=== PATIENT | female | born 1955 | race Caucasian/White ===

== ENCOUNTER → 2016-06-26 | Outpatient (CLI) | payer OTHER ==
[~2016-06-26] MED LIST: ASPI-611 PO; BISO10TA PO; CHOL200026 PO; CYCL-375 PO; LEVO112T7 PO; ONDA4TAB10 SL; PANT20TA PO
--- NOTE | 2016-06-26 11:58 | DI ---
Indication: ITS.REASON: M79.671 PAIN IN RT FOOT PROCEDURE: MRI FOOT RIGHT W/O CONTRAST: Encounter: Initial Comparison: Right foot radiographs dated May 01, 2016 Technique: Multiplanar multisequence MR imaging of the right foot was performed without contrast. Findings: There is bony irregularity in the second through fifth metatarsal bases with focal low T1 signal intensity in the middle cuneiform bone and second metatarsal base. There is bowing deformity of the fifth metatarsal shaft. The flexor and extensor tendons of the foot appear intact. The Lisfranc ligament appears thickened but grossly intact. There is edema within the navicular bone and medial cuneiform as well. Large osteophyte formation seen in the midfoot. No discrete acute fracture line identified. No fluid collection seen. Plantar fascia appears normal in thickness. Impression: Bony disorganization of the mid foot which could be due to old trauma or a neuropathic foot. There is more focal edema in the medial cuneiform bone and navicular which could be due to superimposed bone contusion or merely represent degenerative edema. .
== END ==
LOC: IMA 09:35
PROVIDERS: ATTEND Family Medicine Sports Medicine
DX: R60.0 Localized edema (principal); R93.7 Abnormal findings on diagnostic imaging of other parts of musculoskeletal system; M79.671 Pain in right foot

== ENCOUNTER 2017-06-27 09:47 | Inpatient (IN) ==
[2017-06-27] MEDS ORDERED: SALINE FLUSH 10ml SYRINGE IVF PRN (10:05)
[2017-06-27] MEDS: NS 1,000 ML IV SCH ×2 (10:33→14:44)
--- NOTE | 2017-06-27 11:42 | Emergency Department Report ---
Neuro HPI - General Chief Complaint: Neuro Symptoms/Deficit Stated Complaint: numbness R side Face, arm, diff swallowing Time Seen by Provider: 06/27/17 10:05 - History of Present Illness HPI Narrative: 62-year-old female presents with right-sided facial weakness which onset at 08 30 this morning. No trauma, no prodromal event. She was sitting and suddenly noticed right sided numbness on her face arm and leg. She's had no previous embolic event. She had no syncope. No headache or vision changes either. No event like this is her happened to her previously. She felt uncomfortable up with her that she came to emergency department. - Related Data Home Medications: Home Medications Medication Instructions Recorded Confirmed Bisoprolol Fumarate 10 mg PO DAILY #0 11/23/15 06/27/17 Aspirin [Aspirin EC] 162 mg PO DAILY 06/27/17 06/27/17 Atorvastatin [Lipitor] 10 mg PO HS 06/27/17 06/27/17 Cholecalciferol (Vitamin D3) 2,000 unit PO DAILY 06/27/17 06/27/17 [Vitamin D3] Coenzyme Q-10 [Co Q-10] 200 mg PO HS 06/27/17 06/27/17 Cyclobenzaprine [Flexeril] 10 mg PO TID PRN 06/27/17 06/27/17 Levothyroxine Tab [Synthroid] 100 mcg PO ACB 06/27/17 06/27/17 Liothyronine Sodium 7.5 mg PO DAILY 06/27/17 06/27/17 Metformin HCl [Metformin HCl ER] 1,000 mg PO QAM 06/27/17 06/27/17 Metformin HCl [Metformin HCl ER] 500 mg PO WS 06/27/17 06/27/17 Nitroglycerin [Nitrostat] 0.4 mg SL Q5MIN3 PRN 06/27/17 06/27/17 Pantoprazole Sodium [Protonix] 20 mg PO HS 06/27/17 06/27/17 Zolpidem [Ambien] 10 mg PO HS PRN 06/27/17 06/27/17 Allergies/Adverse Reactions: Allergies Allergy/AdvReac Type Severity Reaction Status Date / Time butorphanol Allergy Severe BREATHING Verified 06/27/17 10:13 amoxicillin Allergy Mild STOMACH Verified 06/27/17 10:13 cephalexin Allergy Mild HEADACHE Verified 06/27/17 10:13 erythromycin base Allergy Mild Verified 06/27/17 10:13 meperidine Allergy Mild VOMIT Verified 06/27/17 10:13 phenazopyridine Allergy Mild RASH Verified 06/27/17 10:13 Sulfa (Sulfonamide Allergy Mild RASH Verified 06/27/17 10:13 Antibiotics) Review of Systems All systems: reviewed and negative except as stated PFSH Patient Stated Medical History Cardiac Arrhythmia Yes Hypertension Yes Diabetes Mellitus Type 2 Yes - Social History Smoking status: Never smoker Physical Exam - Limitations Limitations: no limitations - General General appearance: alert, in no apparent distress - Normal Exams: Head:: Normocephalic without trauma Chest/Respirations:: Clear all kang, with good airflow, and symmetry bilaterally Cardiovascular:: Regular rate and rhythm, without murmur or gallop, Pulses 2+ all extremities, capillary refill, <2 seconds all extremities Abdomen:: Bowel sounds positive, soft, non-tender, non-distended, no hepatosplenomegaly, masses or bruits noted Neurological:: Patient is alert, and oriented, cranial nerves, motor/sensory/ cerebellar, exams w/o gross deficits, to observation Psychiatric:: Patient exhibits, appropriate attention, emotion and affect - Neurological Exam Neurological exam: Present: motor sensory deficit (no motor sensory deficit is noted. Strength 5 out of 5 in all 4 extremities.History through 12 grossly intact.), other (patient reports an odd SENSATION TO HER FACE ON LIGHT TOUCH, HOWEVER PATIENT DOES HAVE SENSATION.) Course Vital Signs Temperature 98.3 F 06/27/17 09:50 Pulse Rate 73 06/27/17 09:50 Respiratory Rate 19 06/27/17 09:50 Blood Pressure 176/85 H 06/27/17 09:50 Pulse Oximetry 100 06/27/17 09:50 Temperature 98.3 F 06/27/17 09:50 Pulse Rate 75 06/27/17 12:30 Respiratory Rate 20 06/27/17 12:30 Blood Pressure 164/70 H 06/27/17 12:30 Pulse Oximetry 97 06/27/17 12:30 Neuro Symptoms/Deficit - MDM Narrative Medical decision making narrative: NIH stroke scale was 1. Teleneurology was consulted and responded. The neurologist did speak to the patient, but do not have access to radiology. Apparently they do not subscribe to the service that allows them to review our CT scans or the radiologist's read. Therefore they're making the decision without seeing the CT scan. Teleneurology recommended giving the alteplase at 4 hours post event with the NIH scale of 1. This is discussed with the patient at length, reviewing the best that I could find on risk and benefit. Neurology called back and explained that based on her sedan score her risk decreased from 6.7% to approximately 2% risk of significant bleed. I also discussed this with the patient. The patient, her sister, her and her son while present in the room. They discussed between themselves and ultimately decided she could stand to live with the symptoms of tightness in her face and on her arms and legs and that they preferred that to even a small risk of bleed. At this point we will hold off on alteplase. Patient will be admitted to hospitalist service. I discussed this with Dr. Tarango. - Differential Diagnosis Likely: subarachnoid hemorrhage, peripheral neuropathy, cerebrovascular accident , multiple sclerosis, transient cerebral ischemia - Lab Data Result diagrams: 06/27/17 10:28 06/27/17 10:28 Lab Results 06/27/17 06/27/17 06/27/17 Range/Units 10:00 10:28 10:28 WBC 10.1 (4.5-11.0) T/MM3 RBC 5.04 (4.00-5.20) M/MM3 Hgb 13.7 (12-16) GM/DL Hct 42.2 (36-46) % MCV 83.7 (80-100) UM3 MCH 27.2 (26-34) UUG MCHC 32.5 (31-37) GM/DL RDW Std Deviation 48.2 (36.9-50.2) FL Plt Count 278 (130-400) T/MM3 MPV 9.8 (9.4-12.4) UM3 Immature Gran % (Auto) 0.9 H (0.0-0.5) % Neut % (Auto) 67.9 H (33-66) % Lymph % (Auto) 21.9 L (23-45) % [place] % (Auto) 6.2 (0-9.0) % Eos % (Auto) 2.8 (0-4) % Baso % (Auto) 0.3 (0-2) % Neut # (Auto) 6.8 (1.8-7.7) T/MM3 Lymph # (Auto) 2.2 (1-4.8) T/MM3 [place] # (Auto) 0.6 (0-0.8) T/MM3 Eos # (Auto) 0.3 (0-0.5) T/MM3 Baso # (Auto) 0.0 (0-0.2) T/MM3 Abs Immat Gran (auto) 0.09 H (0.00-0.03) T/MM3 Turbidity < 20 (0-20) Sodium 145 H (134-144) MEQ/L Potassium 4.2 (3.6-5) MEQ/L Chloride 105 (98-107) MEQ/L Carbon Dioxide 27 (22-30) MEQ/L Anion Gap 13 (5-15) meq/L BUN 19.0 H (7-17) MG/DL Creatinine 0.7 (0.7-1.2) mg/dL GFR Calculation 85 BUN/Creatinine Ratio 27 H (6-26) RATIO Glucose 101 (65-110) MG/DL Glucometer 91 (65-110) mg/dL Calculated Osmolality 281 H (261-280) MOSM/KG Calcium 9.6 (8.4-10.2) MG/DL Total Bilirubin 0.50 (0.20-1.30) MG/DL Icterus Index < 2 (0-7) AST 22 (14-36) U/L ALT 20 (1-35) U/L Alkaline Phosphatase 111 (38-126) U/L Total Protein 7.5 (6.3-8.2) g/dL Albumin 4.3 (3.5-5.0) g/dL Globulin 3.2 (2.4-3.6) G/DL Albumin/Globulin Ratio 1.3 (1.1-2.2) RATIO Specimen Hemolysis < 15 (0-25) Ur Collection Type Urine Color (YELLOW) Urine Clarity Urine pH (5.0-8.0) Ur Specific [place] (1.015-1.025) Urine Protein (NEGATIVE) Urine Glucose (UA) (NEGATIVE) Urine Ketones (NEGATIVE) Urine Occult Blood (NEGATIVE) Urine Nitrate (NEGATIVE) Urine Bilirubin (NEGATIVE) Urine Urobilinogen (NORMAL) EU/DL Ur Leukocyte Esterase (NEGATIVE) Urinalysis Comment 04/28/18 Range/Units 10:42 WBC (4.5-11.0) T/MM3 RBC (4.00-5.20) M/MM3 Hgb (12-16) GM/DL Hct (36-46) % MCV (80-100) UM3 MCH (26-34) UUG MCHC (31-37) GM/DL RDW Std Deviation (36.9-50.2) FL Plt Count (130-400) T/MM3 MPV (9.4-12.4) UM3 Immature Gran % (Auto) (0.0-0.5) % Neut % (Auto) (33-66) % Lymph % (Auto) (23-45) % [place] % (Auto) (0-9.0) % Eos % (Auto) (0-4) % Baso % (Auto) (0-2) % Neut # (Auto) (1.8-7.7) T/MM3 Lymph # (Auto) (1-4.8) T/MM3 [place] # (Auto) (0-0.8) T/MM3 Eos # (Auto) (0-0.5) T/MM3 Baso # (Auto) (0-0.2) T/MM3 Abs Immat Gran (auto) (0.00-0.03) T/MM3 Turbidity (0-20) Sodium (134-144) MEQ/L Potassium (3.6-5) MEQ/L Chloride (98-107) MEQ/L Carbon Dioxide (22-30) MEQ/L Anion Gap (5-15) meq/L BUN (7-17) MG/DL Creatinine (0.7-1.2) mg/dL GFR Calculation BUN/Creatinine Ratio (6-26) RATIO Glucose (65-110) MG/DL Glucometer (65-110) mg/dL Calculated Osmolality (261-280) MOSM/KG Calcium (8.4-10.2) MG/DL Total Bilirubin (0.20-1.30) MG/DL Icterus Index (0-7) AST (14-36) U/L ALT (1-35) U/L Alkaline Phosphatase (38-126) U/L Total Protein (6.3-8.2) g/dL Albumin (3.5-5.0) g/dL Globulin (2.4-3.6) G/DL Albumin/Globulin Ratio (1.1-2.2) RATIO Specimen Hemolysis (0-25) Ur Collection Type Urine, void-cc/notcc Urine Color Yellow (YELLOW) Urine Clarity Clear Urine pH 5.5 (5.0-8.0) Ur Specific [place] <=1.005 L (1.015-1.025) Urine Protein Negative (NEGATIVE) Urine Glucose (UA) Negative (NEGATIVE) Urine Ketones Negative (NEGATIVE) Urine Occult Blood Negative (NEGATIVE) Urine Nitrate Negative (NEGATIVE) Urine Bilirubin Negative (NEGATIVE) Urine Urobilinogen 0.2 (NORMAL) EU/DL Ur Leukocyte Esterase Negative (NEGATIVE) Urinalysis Comment Microscopic not ind. Disposition Clinical Impression: Cerebrovascular accident Disposition: 02 To [facility] [place] Acute Care Condition: Stable Prescriptions: No Action Bisoprolol Fumarate 10 mg PO DAILY #0 Coenzyme Q-10 [Co Q-10] 200 mg PO HS Zolpidem [Ambien] 10 mg PO HS PRN PRN Reason: Insomnia Metformin HCl [Metformin HCl ER] 500 mg PO WS Atorvastatin [Lipitor] 10 mg PO HS Aspirin [Aspirin EC] 162 mg PO DAILY Cholecalciferol (Vitamin D3) [Vitamin D3] 2,000 unit PO DAILY Cyclobenzaprine [Flexeril] 10 mg PO TID PRN PRN Reason: Muscle Spasm Pantoprazole Sodium [Protonix] 20 mg PO HS Levothyroxine Tab [Synthroid] 100 mcg PO ACB Liothyronine Sodium 7.5 mg PO DAILY Metformin HCl [Metformin HCl ER] 1,000 mg PO QAM Nitroglycerin [Nitrostat] 0.4 mg SL Q5MIN3 PRN PRN Reason: Chest Pain Referrals: Rick Enriquez MD [Primary Care Provider] - Time of Disposition: 12:49 - Seen By: physician
[2017-06-27] MEDS ORDERED: MORPHINE SULFATE 4mg INJECTION IVP ONE (12:03)
--- NOTE | 2017-06-27 13:19 | History & Physical Report ---
History of Present Illness Date: 06/27/17 Chief complaint: abnormal sensation right side of face HPI: Melba Boyd is a 62 year old woman who presented [place] [facility] for further evaluation of stroke-like symptoms. She stated that at 0830 this morning, the right side of her face began to feel numb and it felt funny to swallow (but denies choking). She also noticed some right arm weakness. Her fine motor coordination was unaffected. She went to the mirror to look at her face and noticed that her smile was a little off on the right. She also developed a mild right-sided headache. She reports some dizziness but no syncope. Melba tripped over a curb about 2 weeks ago and injured her right shoulder and back - she went to a chiropractor yesterday but with the persistent pain she is quite worried about a blood clot. Her risk factors include 2 recent plane trips over the last 6 years. She states that yesterday (06/26) she was slightly short of breath and wheezy. She reports mild chronic sinus drainage and a nonproductive cough which she attributes to allergies. She has frequent palpitations but denies chest pain. She denies leg swelling. No abdominal pain or n/v/d/c. She denies urinary issues. She denies any rashes or wounds but notes that her skin tears easily. When she arrived in the ED, teleneurology was consulted and recommended tPA. NIH score = 1. Following risks: benefits discussion with the ED physician, she declined tPA. She was moderately hypertensive in the ED and had one isolated reading of SBP [address] head was read as hypodensity to the left posterior inferior thalamus, possibly indicating stroke. Labs showed mild hypernatremia (145) but were otherwise unremarkable. She was given ASA 325 mg and 1L IVF. Dr. Tarango was contacted and given her stroke symptoms, she was admitted to inpatient status. Review of Systems All systems PM: 10-point ROS was reviewed, no additional remarkable complaints except - Constitutional Constitutional: Present: headache(s). Absent: chills, fever(s), weakness - EENMT Eyes: Present: requires corrective lenses. Absent: blurry vision, change in vision, diplopia Balance: Absent: falling to one side Nose: Present: allergies Mouth/Throat: Present: changes in swallowing. Absent: sore throat, painful swallowing - Cardiovascular Cardiovascular: Present: palpitations. Absent: chest pain, syncope, edema Vascular: Present: see HPI. Absent: unilateral swelling - Respiratory Respiratory: Present: cough, wheezing - Gastrointestinal Gastrointestinal: Absent: abdominal pain, constipation, diarrhea, nausea, vomiting - Genitourinary Genitourinary: Absent: dysuria, hematuria Menstruation: post hysterectomy - Musculoskeletal Musculoskeletal: Present: other (right shoulder pain) - Integumentary/Breasts Integumentary: Absent: rash, wounds - Neurological Neurological: Present: as per HPI, headache(s), numbness (chronic numbness to both legs), sensory deficit (right side of face). Absent: dizziness - Psychiatric Psychiatric: Absent: anxiety, depression - Endocrine Endocrine: Present: palpitations - Hematologic/Lymphatic Hematologic/Lymphatic: Absent: easy bleeding, easy bruising - Allergic/Immunologic Allergic/Immunologic: Present: seasonal rhinorrhea Past Medical History Medical History Updates: CAD. SVT. Vitamin D deficiency. 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 Dyslipidemia. HTN. Hypothyroidism. LYNN - has CPAP but doesn' t consistently use. Nephrolithiasis. OA. 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 Prediabetes (Hg A1c in last 6 months was 6.2%) Surgical History: ERCP. Cholecystectomy. Appendectomy. Cystoscopy. Lithotripsy. Heart cath in 2016 showing CAD not requiring stents. Cardiac ablation 2008 for SVT. Tonsillectomy age 8. Colonoscopy and EGD in 2012 and 2016. CAMILA/BSO 2010. Hemorrhoidal banding 2012. Left knee arthroscopy 2015 - Dr. Muniz Family History Updates: Mother at age 72 of a cerebral aneurysm. Also had CAD and OK and bladder cancer. All of her mother's siblings had CAD. Father at age 35 of heart attack or stroke. MGM - breast and throat cancer. MGF - Stroke. PGM - DM. PGF - CAD. 2 sisters - 1 of pancreatic cancer at age 71; she also had CAD. Other sister with CAD (she has 44 stents). Family History: As Above - Social History Smoking status: Former smoker (quit 1980) Packs per day: 1 Packs-years: 10 Substance use type: does not use Alcohol intake frequency: does not drink Household members: spouse, other (foster care) Current occupational status: retired Previous occupational history: manager web application at [employer] Medications Home Medications Medication Instructions Recorded Confirmed Type Bisoprolol Fumarate 10 mg PO DAILY #0 11/23/15 06/27/17 History Aspirin [Aspirin EC] 162 mg PO DAILY 06/27/17 06/27/17 History Atorvastatin [Lipitor] 10 mg PO HS 06/27/17 06/27/17 History Cholecalciferol (Vitamin D3) 2,000 unit PO DAILY 06/27/17 06/27/17 History [Vitamin D3] Coenzyme Q-10 [Co Q-10] 200 mg PO HS 06/27/17 06/27/17 History Cyclobenzaprine [Flexeril] 10 mg PO TID PRN 06/27/17 06/27/17 History Levothyroxine Tab [Synthroid] 100 mcg PO ACB 06/27/17 06/27/17 History Liothyronine Sodium 7.5 mg PO DAILY 06/27/17 06/27/17 History Metformin HCl [Metformin HCl ER] 1,000 mg PO QAM 06/27/17 06/27/17 History Metformin HCl [Metformin HCl ER] 500 mg PO WS 06/27/17 06/27/17 History Nitroglycerin [Nitrostat] 0.4 mg SL Q5MIN3 PRN 06/27/17 06/27/17 History Pantoprazole Sodium [Protonix] 20 mg PO HS 06/27/17 06/27/17 History Zolpidem [Ambien] 10 mg PO HS PRN 06/27/17 06/27/17 History Allergies Allergy/AdvReac Type Severity Reaction Status Date / Time butorphanol Allergy Severe BREATHING Verified 06/27/17 10:13 amoxicillin Allergy Mild STOMACH Verified 06/27/17 10:13 cephalexin Allergy Mild HEADACHE Verified 06/27/17 10:13 erythromycin base Allergy Mild Verified 06/27/17 10:13 meperidine Allergy Mild VOMIT Verified 06/27/17 10:13 phenazopyridine Allergy Mild RASH Verified 06/27/17 10:13 Sulfa (Sulfonamide Allergy Mild RASH Verified 06/27/17 10:13 Antibiotics) Exam Vital Signs: Temperature 98.3 F 06/27/17 09:50 Pulse Rate 75 06/27/17 12:30 Respiratory Rate 20 06/27/17 12:30 Blood Pressure 164/70 H 06/27/17 12:30 Pulse Oximetry 97 04/28/18 12:30 - Constitutional Present: no acute distress, well nourished, well developed - Routine HEENT Exam Head: Present: normocephalic Eye: Present: PERRL. Absent: conjunctival icterus, scleral injection ENT: Present: mucous membranes moist, oropharynx clear, dentition normal - Routine Neck Exam Present: supple. Absent: lymphadenopathy - Routine Respiratory Exam Present: CTA bilaterally - Routine Cardiovascular Exam Present: RRR, S1, S2 - Routine Abdominal Exam Present: soft, normoactive bowel sounds, non distended, non tender - Routine Extremities Exam Present: no edema, pulses intact, normal capillary refill. Absent: calf tenderness - Routine Back/Spine/Pelvis Exam Back/Spine: Present: full ROM - Routine Skin Exam Present: intact, dry, warm - Routine Neurological Exam Present: alert, oriented X3, moving all extremities, vision grossly intact, hearing grossly intact, normal speech. Absent: CN II-XII intact (subtle loss of right nasolabial fold), sensory deficit (previous numbness to right side of face has resolved), motor deficit, altered mental status, nystagmus - Routine Psychiatric Exam Present: normal affect, normal thought process, cooperative Results - Labs CBC & Chem 7: 06/27/17 10:28 06/27/17 10:28 Assessment and Plan (1) Cerebrovascular accident Current visit: Yes Status: Acute Assessment and Plan: Assessment Acute stroke Hypernatremia (POA) CAD SVT, history of ablation Dyslipidemia HTN Hypothyroidism Prediabetes (Hg A1c in last 6 months was 6.2%) LYNN - has CPAP but doesn't consistently use Vitamin D deficiency 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 PCP: Dr. Enriquez Stroke -symptoms improving -MR brain, carotid dopplers, echo, lipid panel -continue statin but consider changing d/t muscle cramps -continue ASA, start Plavix -PT/OT/ST consults -monitor tele and BP - not on any antiHTN Prediabetes -Carb consistent diet -monitor accuchecks -cont Metformin LYNN -encouraged her to use home CPAP while hospitalized Advanced directives: -DPOA updated today naming her spouse Basim as DPOA and her sister as her alternate -they will work on Living Will -Full code DVT Prophylaxis: SCD's, Lovenox GI Prophylaxis: Protonix Resuscitation Status: Full Code - Physician Narrative Physician: Jena Tarango MD Narrative: Date: 06/27/17 Time: 1740 I have independently evaluated and examined this patient. I reviewed the chart, the patient's history, and the GAMBLING CASHIER/PA's documented findings as above. We discussed and formulated the assessment and plan as above with additions as below: Mrs. Boyd had onset of right facial numbness, subtle facial asymmetry not perceived by her , and subtle right upper extremity weakness at 8:30 this morning. She had been up for a little over an hour prior to onset of symptoms. Mild residual facial numbness persists but other symptoms have resolved. Decreased sensation right V2, V3 distributions of the facial nerve, forehead spared. I did not appreciate significant facial asymmetry time of my exam. Remainder of cranial nerves unremarkable, tongue midline. Sensation symmetric in the upper and lower extremities accounting for known neuropathy involving the lower extremities. No drift to the upper extremities, proximal/distal power within normal limits 4 extremities. [id number] intact, rapid alternating finger movements intact; no tremor CT head reviewed by myself-proximal 1 cm lucency in the left posterior thalamus described of uncertain significance per radiology report Venous Doppler right upper extremity also reviewed by myself-no evidence of DVT. Laboratory data unremarkable. Subtle neurological symptoms consistent with ischemic event-possible ischemic stroke visualized on CT obtain 90 minutes after onset of symptoms, seems asked seemingly early to visualize small ischemic stroke. Proceed with MR imaging and additional standard studies as outlined above. May require CT angiogram for better definition of small vessels. Plavix initiated; will discuss need to continue aspirin with Dr. Sarmiento as patient has known CAD with 1 lesion of approximately 70% stenosis by heart catheter 2 years ago. Continue aspirin 81 mg daily at present. Consider conversion to Crestor for higher potency statin. Will discuss with patient/ after preliminary results are available. Discussed with Dr. Hernández. Hospital Course Summary Disclaimer: The visit summary below is not to be considered part of the above Progress Note. Hospital Course: 06/27/17 - Admit, inpatient status. PCP: Dr. Enriquez Stroke -symptoms improving -MR brain, carotid dopplers, echo, lipid panel -continue statin but consider changing d/t muscle cramps -continue ASA, start Plavix -PT/OT/ST consults -monitor tele and BP - not on any antiHTN Prediabetes -Carb consistent diet -monitor accuchecks -cont Metformin LYNN -encouraged her to use home CPAP while hospitalized Advanced directives: -DPOA updated today naming her spouse Basim as DPOA and her sister as her alternate -they will work on Living Will -Full code
[2017-06-27 13:47] VITALS: BMI 41.2
[2017-06-27] MEDS: ACETAMINOPHEN 325 MG TABLET PO PRN (14:34)
[2017-06-27] MEDS ORDERED: CYCLOBENZAPRINE 10 MG TABLET PO PRN (14:47)
[2017-06-27] MEDS ORDERED: NITROGLYCERIN 0.4 MG SUBLINGUAL TABLET SL PRN (14:47)
[2017-06-27] MEDS ORDERED: ZOLPIDEM 10 MG TABLET PO PRN (14:47)
[2017-06-27] MEDS: CLOPIDOGREL 75 MG TABLET PO SCH (15:11)
[2017-06-27] MEDS ORDERED: COENZYME Q-10 200mg TABLET PO SCH (21:00)
[2017-06-27] MEDS ORDERED: PANTOPRAZOLE 20 MG TABLET PO SCH (21:00)
[2017-06-27] MEDS ORDERED: ATORVASTATIN 10 MG TABLET PO SCH (21:00)
[2017-06-28] MEDS: ACETAMINOPHEN 325 MG TABLET PO PRN (00:43)
[2017-06-28] MEDS ORDERED: LEVOTHYROXINE 100 MCG TABLET PO SCH (06:30)
[2017-06-28 07:31] VITALS: RESP 16
[2017-06-28] MEDS ORDERED: ASPIRIN 325 MG TABLET PO SCH (09:00)
[2017-06-28] MEDS ORDERED: NON-FORMULARY MEDICATION 1 EACH EACH (Cholecalciferol (Vitamin D3) [Vitamin D3] 2,000 UNIT PO SCH (09:00)
[2017-06-28] MEDS ORDERED: BISOPROLOL FUMARATE 10 MG PO SCH (09:00)
[2017-06-28] MEDS ORDERED: ENOXAPARIN 40 MG/0.4 ML INJECTION SQ SCH (09:00)
[2017-06-28] MEDS ORDERED: LIOTHYRONINE 5 MCG TABLET PO SCH (09:00)
[2017-06-28] MEDS ORDERED: ASPIRIN *EC* 81 MG TABLET PO SCH ×2 (09:00)
[2017-06-28] MEDS: CLOPIDOGREL 75 MG TABLET PO SCH (09:22)
--- NOTE | 2017-06-28 09:50 | Ultrasound Report ---
Indication: arm pain r/o DVT PROCEDURE: US venous doppler UE RT: Encounter: Initial Comparison: None Technique: Color Doppler duplex and grayscale sonographic imaging of the right upper extremity was performed. FINDINGS: There is no evidence for acute deep venous thrombosis in the right arm. The right internal jugular, subclavian, axillary and paired brachial veins were evaluated; compression and augmentation were applied where possible. In addition, color and pulsed Doppler demonstrate appropriate spontaneous flow, cardiac pulsatility and variation with respiration. IMPRESSION: No evidence of acute DVT in the right upper extremity. There is a preliminary report by [facility]. .
--- NOTE | 2017-06-28 09:50 | CT Scan Report ---
Indication: numbness face PROCEDURE: CT head/brain wo con: Encounter: Initial Comparison: Brain MRI dated June 28, 2017 Technique: Axial CT images through the head were performed without contrast. Iterative Reconstruction dose reducing technique was utilized. FINDINGS: The ventricles are of normal size, shape, and contour for the patient's age. There are scattered areas of low attenuation in the white matter which most likely represent changes from chronic microvascular ischemia. The preliminary report mentions a region of low attenuation in the left thalamus which is probably due to beam hardening artifact and is not confirmed on the subsequent brain MRI. The brainstem, cerebellum, and cerebral hemispheres otherwise have a normal morphology and CT attenuation. There is no evidence of midline displacement. No hemorrhage, signs of acute territorial stroke, mass effect, mass lesions, or edema is evident. The visualized portions of the skull base, midface, and calvarium demonstrate no abnormality. The paranasal sinuses are well aerated and free of significant disease. The tympanic and mastoid cavities appear normal. IMPRESSION: No acute intracranial abnormality or hemorrhage. If there is continued, concern for acute ischemia, brain MRI may be helpful. There is a preliminary report by [employer]. .
--- NOTE | 2017-06-28 09:52 | Magnetic Resonance Report ---
Indication: stroke, right facial abnormal sensation PROCEDURE: MR head/brain wo con: Encounter: Initial Comparisons: None. Technique: Multiplanar, multisequence, MR imaging of the head without contrast was acquired. FINDINGS: The ventricles are of normal size, shape, and contour for the patient's age. There are small nonspecific punctate areas of T2-weighted and T2 FLAIR weighted signal abnormality in the deep frontoparietal white matter that most likely represent small vessel ischemic disease. This is advanced for the patient's age. The brain stem, cerebellum, and cerebral hemispheres otherwise have a normal morphologic appearance as well as MR signal intensity on all pulse sequences. There are no areas of restricted diffusion on diffusion weighted imaging to suggest an acute infarct. There is no evidence of an intracranial mass lesion, intracranial hemorrhage, or hydrocephalus. The visualized portions of the orbits, calvarium, paranasal sinuses, and skull base demonstrate no significant abnormality. IMPRESSION: No acute intracranial hemorrhage or infarct. Increased number of nonspecific white matter lesions could represent chronic microvascular ischemia although other etiologies such as demyelinating disease and postinfectious/postinflammatory causes are also within the differential. .
--- NOTE | 2017-06-28 09:54 | Ultrasound Report ---
Indication: stroke PROCEDURE: US carotid doppler BI: TECHNIQUE: Grayscale, color and duplex Doppler imaging was performed of the carotid systems bilaterally. Velocities in cm/sec - validated velocity measurements with angiographic measurements, velocity criteria are extrapolated from diameter data as defined by the Society of Radiologists in Ultrasound Consensus Conference Radiology 2003; 229;340-346. RIGHT: PSV ICA 70.5 EDV ICA 22.8 PSV CCA 79.5 EDV CCA 14.2 PSV ECA 111 ICA Diameter reduction <20% (0.8-1.0)% LEFT: PSV ICA 82.5 EDV ICA 27.1 PSV CCA 74.3 EDV CCA 17.6 PSV ECA 121 ICA Diameter reduction <20% (0.8-1.0)% The right vertebral artery is patent with cephalic flow. The left vertebral artery is patent with cephalic flow. IMPRESSION: No hemodynamically significant carotid stenosis. No significant atherosclerotic plaque. .
--- NOTE | 2017-06-28 10:04 | XRay Report ---
Indication: wheezing PROCEDURE: XR chest 1V: Encounter: Initial Comparison: December 16, 2015 FINDINGS: The lungs are clear. There is no abnormal airspace opacity, pleural effusion or pneumothorax identified. The heart size, pulmonary vasculature and mediastinum are within normal limits. No significant skeletal abnormality is seen. IMPRESSION: No acute cardiopulmonary abnormality. .
--- NOTE | 2017-06-28 10:37 | Progress Note ---
- Date 06/28/17 Subjective: Melba is seen today in follow up. Still has some very mild right hand weakness. No right leg weakness or gait instability reported. States no difficulty with swallow, but does feel that her right throat is a bit "numb" at times. We discussed need for careful eating, and also s/sx of choking that would need to be reported. She denies any fever or chills. No cough, congestion, or pain. Otherwise, is feeling well. Objective Vital signs: Temperature 97.9 F 06/28/17 07:30 Pulse Rate 70 06/28/17 07:30 Respiratory Rate 16 06/28/17 07:30 Blood Pressure 138/72 06/28/17 07:30 Pulse Oximetry 95 06/28/17 07:30 Height/Weight/BMI: Height 1.7 m Weight 122.2 kg Body Mass Index 41.2 - Constitutional Present: no acute distress, well nourished, well developed, obese, cooperative - Routine HEENT Exam Head: Present: normocephalic, atraumatic Eye: Present: EOMI, PERRL ENT: Present: mucous membranes moist - Routine Respiratory Exam Present: CTA bilaterally. Absent: rhonchi, wheezes, crackles - Routine Cardiovascular Exam Present: RRR, S1, S2, no murmur - Routine Abdominal Exam Present: soft, normoactive bowel sounds, non distended, non tender - Routine Extremities Exam Present: no edema, non tender, full ROM - Routine Musculoskeletal Exam Musculoskeletal: Present: no clubbing or cyanosis, no tenderness, moving extremities well - Routine Skin Exam Present: intact, dry, warm - Routine Neurological Exam Present: alert, oriented X3, motor deficit (MS right- 4/5, left 5/5 UE only. ), moving all extremities, vision grossly intact, hearing grossly intact, normal speech. Absent: altered mental status, hemineglect, facial asymmetry - Routine Psychiatric Exam Present: normal affect, normal thought process, cooperative Results - Labs CBC & Chem 7: 06/28/17 11:07 06/28/17 11:07 - Imaging and Cardiology Venous US Additional comments: Right UE IMPRESSION: No evidence of acute DVT in the right upper extremity. There is a preliminary report by [facility]. . Carotid Doppler The right vertebral artery is patent with cephalic flow. The left vertebral artery is patent with cephalic flow. IMPRESSION: No hemodynamically significant carotid stenosis. No significant atherosclerotic plaque. MRI - head Additional comments: MRI brain IMPRESSION: No acute intracranial hemorrhage or infarct. Increased number of nonspecific white matter lesions could represent chronic microvascular ischemia although other etiologies such as demyelinating disease and postinfectious/postinflammatory causes are also within the differential. . Chest x-ray Additional comments: CXR IMPRESSION: No acute cardiopulmonary abnormality. . 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 Enriquez Plan 06/28/17 Patient continues to report some right sided weakness and "numbness" in throat. History and presentation reviewed. Mother did pass of brain aneurysm. Consider CTA head and neck given recent fall, and chiropractic manipulation. MRI did show some concern for demyelinating DO as well- known idiopathic hereditary neuropathy. Dopplers negative, no disruption of vertebral or carotid artery flow reported. Echo is pending, but shows preliminary EF of > 65% Will repeat labs and assess Lipid panel, Thyroid, and A1c. She is noted to be on Cytomel and synthroid. Continue remainder of home medications as appropriate. Hx of SVT s/p ablation- may need to consider OP Holter to R/O recurrent dysrhythmia. Continue tele. Routine stoke follow up with therapy. D/W pt to reports any issues with choking with PO intake. Repeat labs now due to dehydration on admit. Home soon? DVT Prophylaxis: Lovenox GI Prophylaxis: Protonix Resuscitation Status: Full Code - Time spent with patient Time with patient PN: 35 minutes Coordination of Care: >50% of visit spent providing counseling/coordination of care - Physician Narrative Physician: Jena Tarango MD Narrative: Date: 06/28/17 Time: 1325 I have independently evaluated and examined this patient. I reviewed the chart, the patient's history, and the CLINICAL LAW PROFESSOR/PA's documented findings as above. We discussed and formulated the assessment and plan as above with additions as below: Melba reports residual altered sensation/mild numbness in the lower part of the right face. She reports no abnormal sensation in the forehead or right ear. She is ambulating without difficulty and is vague about minor weakness in the right hand and arm reporting that she did a lot of baking last week. No right ptosis, symmetric movement forehead musculature. Sensation symmetric right and left sides of the forehead but the patient describes slightly diminished sensation over the right cheek/mandible relative to the left. Fine finger movements in the hands are symmetric and sports physician grossly symmetric. MRI head reviewed by myself-no evidence of acute stroke. Results of MRI head, carotid Dopplers, final reading CT head, and chest x-ray all reviewed with the patient and her . Given persistence of abnormal sensation and family history of intracerebral aneurysm will proceed with CTA imaging. Formal report echocardiogram with normal LV function than 65%, LVH, trace MR, trace TR, no evidence of thrombus. Anticipate discharge later today. Discontinue Plavix, resume aspirin 182 mg daily. Hospital Course Summary Disclaimer: The visit summary below is not to be considered part of the above Progress Note. Hospital Course: 06/27/17 - Admit, inpatient status. PCP: Dr. Enriquez Stroke -symptoms improving -MR brain, carotid dopplers, echo, lipid panel -continue statin but consider changing d/t muscle cramps -continue ASA, start Plavix -PT/OT/ST consults -monitor tele and BP - not on any antiHTN Prediabetes -Carb consistent diet -monitor accuchecks -cont Metformin LYNN -encouraged her to use home CPAP while hospitalized Advanced directives: -DPOA updated today naming her spouse Basim as DPOA and her sister as her alternate -they will work on Living Will -Full code 06/28/17 Patient continues to report some right sided weakness and "numbness" in throat. History and presentation reviewed. Mother did pass of brain aneurysm. Consider CTA head and neck given recent fall, and chiropractic manipulation. MRI did show some concern for demyelinating DO as well- known idiopathic hereditary neuropathy. Dopplers negative, no disruption of vertebral or carotid artery flow reported. Echo is pending, but shows preliminary EF of > 65% Will repeat labs and assess Lipid panel, Thyroid, and A1c. She is noted to be on Cytomel and synthroid. Continue remainder of home medications as appropriate. Hx of SVT s/p ablation- may need to consider OP Holter to R/O recurrent dysrhythmia. Continue tele. Routine stoke follow up with therapy. D/W pt to reports any issues with choking with PO intake. Repeat labs now due to dehydration on admit. Home soon?
[2017-06-28] MEDS ORDERED: SALINE FLUSH 10ml SYRINGE ONE (11:49)
[2017-06-28] MEDS ORDERED: IOHEXOL 350mg/ml 75ml INJECTION ONE (11:49)
--- NOTE | 2017-06-28 16:14 | Discharge Summary ---
Discharge Information Date of admission: 06/27/17 12:45 Anticipated date of discharge: 06/28/17 Attending Physician: Jena Tarango MD Primary care physician: Rick Enriquez MD Consults: - Discharge Diagnosis (1) Right facial numbness Status: Acute (2) Cerebrovascular accident Status: Ruled-out Right facial numbness Acute stroke-ruled out Hypernatremia (POA), minor CAD SVT, history of ablation Dyslipidemia HTN Hypothyroidism Prediabetes LYNN Vitamin D deficiency Splenomegaly from past CMV infection OA Idiopathic hereditary neuropathy - chronic lower extremity numbness - Procedures Procedures: Echocardiogram on 06/27/17 demonstrated ejection fraction 65%, LVH, trace MR, trace TR, no evidence of thrombus. Formal report pending at discharge. - Laboratory Labs: 06/28/17 11:07 06/28/17 11:07 Liver enzymes normal on 06/27/17; total cholesterol 161, triglycerides 154, LDL 83.2, HDL 47 on 06/28/17. TSH 0.52 on 06/28/17 - Radiology Radiology: CT head without contrast on 06/27/17: The ventricles are of normal size, shape, and contour for the patient's age. There are scattered areas of low attenuation in the white matter which most likely represent changes from chronic microvascular ischemia. The preliminary report mentions a region of low attenuation in the left thalamus which is probably due to beam hardening artifact and is not confirmed on the subsequent brain MRI. The brainstem, cerebellum, and cerebral hemispheres otherwise have a normal morphology and CT attenuation. There is no evidence of midline displacement. No hemorrhage, signs of acute territorial stroke, mass effect, mass lesions, or edema is evident. The visualized portions of the skull base, midface, and calvarium demonstrate no abnormality. The paranasal sinuses are well aerated and free of significant disease. The tympanic and mastoid cavities appear normal. IMPRESSION: No acute intracranial abnormality or hemorrhage. If there is continued, concern for acute ischemia, brain MRI may be helpful. ----- Bilateral carotid Dopplers on 06/27/17: Grayscale, color and duplex Doppler imaging was performed of the carotid systems bilaterally. Velocities in cm/sec - validated velocity measurements with angiographic measurements, velocity criteria are extrapolated from diameter data as defined by the Society of Radiologists in Ultrasound Consensus Conference Radiology 2003; 229;340-346. RIGHT: PSV ICA 70.5 EDV ICA 22.8 PSV CCA 79.5 EDV CCA 14.2 PSV ECA 111 ICA Diameter reduction <20% (0.8-1.0)% LEFT: PSV ICA 82.5 EDV ICA 27.1 PSV CCA 74.3 EDV CCA 17.6 PSV ECA 121 ICA Diameter reduction <20% (0.8-1.0)% The right vertebral artery is patent with cephalic flow. The left vertebral artery is patent with cephalic flow. IMPRESSION: No hemodynamically significant carotid stenosis. No significant atherosclerotic plaque. ----- Venous Doppler right upper extremity on 06/27/17: The right internal jugular, subclavian, axillary and paired brachial veins were evaluated; compression and augmentation were applied where possible. In addition, color and pulsed Doppler demonstrate appropriate spontaneous flow, cardiac pulsatility and variation with respiration. IMPRESSION: No evidence of acute DVT in the right upper extremity. ----- Chest x-ray on 06/27/17: NAD ----- MRI of the brain without contrast on 06/28/17: The ventricles are of normal size, shape, and contour for the patient's age. There are small nonspecific punctate areas of T2-weighted and T2 FLAIR weighted signal abnormality in the deep frontoparietal white matter that most likely represent small vessel ischemic disease. This is advanced for the patient's age. The brain stem, cerebellum, and cerebral hemispheres otherwise have a normal morphologic appearance as well as MR signal intensity on all pulse sequences. There are no areas of restricted diffusion on diffusion weighted imaging to suggest an acute infarct. There is no evidence of an intracranial mass lesion, intracranial hemorrhage, or hydrocephalus. The visualized portions of the orbits, calvarium, paranasal sinuses, and skull base demonstrate no significant abnormality. IMPRESSION: No acute intracranial hemorrhage or infarct. Increased number of nonspecific white matter lesions could represent chronic microvascular ischemia although other etiologies such as demyelinating disease and postinfectious/postinflammatory causes are also within the differential. ----- CT angiogram of the head and neck on 06/28/17: Formal report pending at discharge per preliminary report without any evidence of vascular abnormality. History of Present Illness HPI: Melba Boyd is a 62 year old woman who presented to [facility] ED for further evaluation of stroke-like symptoms. She stated that at 0830 this morning, the right side of her face began to feel numb and it felt funny to swallow (but denies choking). She also noticed some right arm weakness. Her fine motor coordination was unaffected. She went to the mirror to look at her face and noticed that her smile was a little off on the right. She also developed a mild right-sided headache. She reports some dizziness but no syncope. Melba tripped over a curb about 2 weeks ago and injured her right shoulder and back - she went to a chiropractor yesterday but with the persistent pain she is quite worried about a blood clot. Her risk factors include 2 recent plane trips over the last 6 years. She states that yesterday (06/26) she was slightly short of breath and wheezy. She reports mild chronic sinus drainage and a nonproductive cough which she attributes to allergies. She has frequent palpitations but denies chest pain. She denies leg swelling. No abdominal pain or n/v/d/c. She denies urinary issues. She denies any rashes or wounds but notes that her skin tears easily. When she arrived in the ED, teleneurology was consulted and recommended tPA. NIH score = 1. Following risks: benefits discussion with the ED physician, she declined tPA. She was moderately hypertensive in the ED and had one isolated reading of SBP [address] head was read as hypodensity to the left posterior inferior thalamus, possibly indicating stroke. Labs showed mild hypernatremia (145) but were otherwise unremarkable. She was given ASA 325 mg and 1L IVF. Dr. Tarango was contacted and given her stroke symptoms, she was admitted to inpatient status. Objective Vital signs: Temperature 97.9 F 06/28/17 07:30 Pulse Rate 70 06/28/17 07:30 Respiratory Rate 16 06/28/17 07:30 Blood Pressure 138/72 06/28/17 07:30 Pulse Oximetry 95 06/28/17 07:30 No right ptosis, symmetric movement forehead musculature. Sensation symmetric right and left sides of the forehead but the patient describes slightly diminished sensation over the right cheek/mandible relative to the left. Fine finger movements in the hands are symmetric and coffee shop attendant grossly symmetric. Respirations nonlabored, good airflow, breath sounds clear Regular rhythm, S1-S2 Height/Weight/BMI: Height 1.7 m Weight 122.2 kg Body Mass Index 41.2 Hospital Course This is a general summary of the patient's hospital course. For more details refer to the complete medical record. Hospital course: Mrs. Boyd was admitted with lower right facial numbness and a funny sensation with swallow. She had some transient right arm weakness. Symptoms were improving but not gone when evaluated in the emergency room a couple hours after onset however noncontrast CT head suggested presence of a hypodensity in the left posterior thalamus consistent with stroke. Plavix was initiated and additional stroke workup completed including carotid Dopplers, MRI brain, echocardiogram, and CTA head and neck all of which were nonrevealing. Formal reading of the initial noncontrast head CT did not confirm the preliminary reading and felt that artifact accounted for the described hypodensity which initially raised concern of stroke. MRI was without evidence of acute stroke and supplemental studies revealed no vascular or embolic sources. A venous Doppler of the right upper extremity was obtained due to recent pain in the arm and patient concern due to family history of multiple vascular events; this study to was negative. Clinical symptoms improved during the time she was hospitalized however she had residual facial numbness in the lower right face at the time of discharge. She still described some minor numbness in her throat intermittently but no difficulty swallowing. MRI questioned whether she may have increased numbers of nonspecific white matter lesions representing chronic microvascular ischemia although other etiologies including postinfectious/ postinflammatory causes or demyelination could also explain the changes. The patient has a known chronic hereditary neuropathy but acute onset of the facial symptoms would seem to exclude this playing a role in presenting symptoms. Given absence of acute changes on MRI of elected to leave medications unchanged to discharge have asked that the patient follow-up with Dr. Siu within the next week for reassessment. She will additionally follow up with Dr. Sarmiento for routine reassessment of known coronary disease and for formal report regarding echocardiogram obtained while hospitalized. Stable for discharge on the afternoon of 06/28/17. Discharge Plan - Discharge Disposition Discharge Date: 06/28/17 Disposition: 01 Discharged Home, Self-Care *Condition: Stable Reason For Visit (Visit label in EMR): facial numbness - Discharge Medications *Discharge Medications: Continue Bisoprolol Fumarate 10 mg PO DAILY #0 Coenzyme Q-10 [Co Q-10] 200 mg PO HS Zolpidem [Ambien] 10 mg PO HS PRN PRN Reason: Insomnia Metformin HCl [Metformin HCl ER] 500 mg PO WS Atorvastatin [Lipitor] 10 mg PO HS Aspirin [Aspirin EC] 162 mg PO DAILY Cholecalciferol (Vitamin D3) [Vitamin D3] 2,000 unit PO DAILY Cyclobenzaprine [Flexeril] 10 mg PO TID PRN PRN Reason: Muscle Spasm Pantoprazole Sodium [Protonix] 20 mg PO HS Levothyroxine Tab [Synthroid] 100 mcg PO ACB Liothyronine Sodium 7.5 mg PO DAILY Metformin HCl [Metformin HCl ER] 1,000 mg PO QAM Nitroglycerin [Nitrostat] 0.4 mg SL Q5MIN3 PRN PRN Reason: Chest Pain - Discharge Packet/Instructions *Diet: Low-salt low-fat, diabetic diet *Activity: As tolerate *Pain Management/Treatment: Tylenol per package instructions if something needed *Wound Care: Not applicable Additional Instructions: No change in medications; monitor for new symptoms involving your forehead that would suggest Almendarez's palsy. Follow-up with Dr. Siu this week. *Expected Signs/Symptoms: Nothing new unexpected *Notify Physician if: Localized weakness, increased numbness, difficulty raising your right eyelid or numbness/difficulty moving forehead muscles on the right *During Business Hours Contact: Dr. Enriquez's office *After Business Hours Contact: Call [facility] at [phone] and ask that the on-call physician be paged *Pending Lab/Results: No Pending Lab - Referrals/Follow Up *Referrals/Follow Up: Rick Enriquez MD [Primary Care Provider] - (This week) - Patient Handouts - Dismissal Complete Discharge Instructions are:: Complete Physician Narrative - Narrative Attestation Narrative: Date: 06/28/17 Time: 1611
[2017-06-28 16:37] VITALS: BP 126/78; PULSE 72; TEMP 97.5; O2SAT 94
--- NOTE | 2017-06-29 08:43 | Echocardiogram ---
DATE OF PROCEDURE June 27, 2017 This is a two-dimensional echo with spectral Doppler, color-flow and M-mode. It was obtained in a patient with CVA. Left atrial dimension is at the upper limits of normal. Left ventricle end- diastolic dimension is normal. Left ventricle wall thickness is increased. LV systolic function is normal with ejection fraction of about 61%. Right atrium is normal. Right ventricle is normal. Aortic root dimension is normal. Mitral valve is morphologically normal with trace of mitral regurgitation. Aortic valve appears to be normal. Tricuspid valve shows trace of tricuspid regurgitation with normal estimated pulmonary artery systolic pressure of 23. Pulmonary valve shows no pulmonary insufficiency. There is no pericardial effusion. Grossly there is no intracardiac thrombus or mass. IMPRESSION 1. Normal LV systolic function with ejection fraction of about 61%. 2. Grossly no intracardiac thrombus or mass. 3. Trace of mitral regurgitation. 4. Trace of tricuspid regurgitation with normal estimated pulmonary artery systolic pressure of 23. 5. Concentric left ventricular hypertrophy. MTDD
[2017-06-29] MEDS ORDERED: ASPIRIN *EC* 81 MG TABLET PO SCH (09:00)
--- NOTE | 2017-06-29 09:28 | CT Scan Report ---
EXAM: CT angio head/neck LOCATION OF DICTATION: [place] HISTORY: facial numbness COMPARISON: No prior studies available for comparison. TECHNIQUE: Multiple contiguous axial images were obtained of the neck following administration of IV contrast. Coronal, sagittal, and 3-D reformatted images were utilized. FINDINGS: There is a normal three-vessel arch without significant stenosis about the arch origin arteries. The bilateral subclavian arteries are widely patent. The bilateral common carotid, carotid bulb, external carotid arteries are patent without evidence for stenosis or occlusion. The bilateral internal carotid arteries are widely patent throughout without evidence for stenosis or occlusion. Bilateral vertebral arteries are widely patent throughout. There is no evidence for arterial dissection or aneurysm. Lung apices are clear. IMPRESSION: No significant stenosis within the right or left carotid arterial system. .
== END 2017-06-28 17:05 | disposition home or self-care (01) | DRG 92 ==
LOC: ED 09:47 → MED 12:45
PROVIDERS: ADMIT Internal Medicine; ATTEND Internal Medicine